=== PATIENT | male | born 1955 | race Caucasian/White ===

== ENCOUNTER 2019-06-08 13:07 | Observation (INO) ==
--- NOTE | 2019-06-08 13:22 | Emergency Department Note ---
Disposition Clinical Impression: Syncope, Leg numbness, Weakness of both lower extremities, Dehydration, Abnormal EKG Disposition: Admitted As Inpatient Referrals: Librado Kaye DO [Primary Care Provider] - Time of Disposition: 16:07 General Adult HPI - General Stated complaint: syncopal episode, BLE numbness Time Seen by Provider: 06/08/19 13:21 - History of Present Illness HPI Narrative: 64-year-old male reports emergency department with concerns for passing out. He states he was at work, he was suspended in a harness over a tank for a significant period of time. He felt dizzy and weak and so they brought him back up and got him out of the harness. The area was being monitored for gases, no toxic gas exposure is reported. He felt the harness was too tight. He states his legs got numb and weak but since then they have normalized. There is no history of slurred speech or unilateral arm or leg weakness or numbness. There is no history of facial drooping. No trauma. He was in his usual state of health prior to the event. The patient got in his truck and reportedly passed out and had loss of urine. He has no history of diabetes mellitus, he has never had a seizure. He then recovered was able to drive. The patient reports emergency department with persistent dizziness, he feels well otherwise. No prior history of CVA. No fall or trauma. The patient denies chest pain or shortness of breath. No abdominal pain. No vomiting or diarrhea. - Related Data Allergies Allergy/AdvReac Type Severity Reaction Status Date / Time No Known Allergies Allergy Verified 06/08/19 14:38 All systems ED: reviewed and negative except as stated. Physical Exam - General Limitations: no limitations General appearance: alert, in no apparent distress - Head Head exam: atraumatic, normocephalic, normal inspection - Eye Eye exam: Present: normal appearance, PERRL, EOMI - ENT ENT exam: normal exam, normal oropharynx, mucous membranes moist, TM's normal bilaterally, normal external ear exam - Neck Neck exam: Present: normal inspection, full ROM, trachea midline - Chest Chest inspection: Present: normal inspection, symmetric chest wall rise. Absent: tenderness - Respiratory Respiratory exam: Present: normal lung sounds bilaterally. Absent: respiratory distress, prolonged expiratory phase - Cardiovascular Cardiovascular exam: Present: regular rate, normal rhythm, normal heart sounds - Abdominal Exam Abdominal exam: Present: soft, Non-Tender, normal bowel sounds. Absent: tenderness, distention, guarding, rebound, rigidity, trauma - Extremities Exam Extremities exam: Present: normal inspection, full ROM, normal capillary refill. Absent: tenderness, pedal edema, joint swelling, calf tenderness - Expanded Lower Extremity Exam Neurovascular/Tendon exam: Present: normal capillary refill. Absent: motor deficit, sensory deficit, tendon deficit, extremity cold to touch, pallor - Back Exam Back exam: Present: normal inspection, full ROM. Absent: tenderness, CVA tenderness (R), CVA tenderness (L), vertebral tenderness - Neurological Exam Neurological exam: Present: alert, oriented X3, CN II-XII intact. Absent: motor sensory deficit - Psychiatric Psychiatric exam: Present: normal affect, normal mood - Skin Skin exam: Present: warm, dry, intact, normal color Course Vital Signs Temperature 97.5 F L 06/08/19 13:19 Pulse Rate 59 06/08/19 13:19 Respiratory Rate 18 06/08/19 13:19 Blood Pressure 127/76 06/08/19 13:19 O2 Sat by Pulse Oximetry 98 06/08/19 13:19 Temperature 97.5 F L 06/08/19 13:19 Pulse Rate 59 06/08/19 13:19 Respiratory Rate 18 06/08/19 13:19 Blood Pressure 120/76 06/08/19 13:41 O2 Sat by Pulse Oximetry 98 06/08/19 13:19 Oxygen Delivery Oxygen Delivery Room Air Medical Decision Making - [facility] Narrative Medical decision making narrative: The patient describes being suspended in a harness for a significant period of time, he developed weakness dizziness as well as leg numbness and had a syncopal event with a loss of urine. In the emergency department, the patient complained of dizziness as most of his other symptoms had resolved. CT head chest x-ray and laboratory studies reviewed. EKG shows a sinus rhythm with an interventricular conduction delay/right bundle branch block and no acute ischemic changes appreciated. No old EKG available for comparison. The patient was given IV fluid and seemed to improve. Based on the patient's age, reported leg numbness, syncope with loss of urine, and abnormal EKG I thought it would be appropriate to observe the patient in the hospital. I suspect the lower extremities became somewhat weak possibly secondary to direct pressure from the harness, he demonstrates no acute neurologic changes suggestive of acute spinal pathology or central source currently however further evaluation could be considered with further radiographic studies. The patient was ambulatory in emergency department. He denied chest pain. Perhaps a series of cardiac enzymes would be appropriate. He is agreeable to hospitalization for observation. I consulted with the hospitalist on-call who has excepted the patient to their care. - Lab Data Lab results reviewed: Yes I reviewed the patient's lab results. Result diagrams: 06/08/19 13:34 06/08/19 13:34 Lab Results 06/08/19 06/08/19 06/08/19 Range/Units 13:34 13:34 13:34 WBC 14.3 H (4.3-11.1) K/mcL RBC 4.85 (4.19-5.50) M/mcL Hgb 15.4 (12.9-16.9) g/dL Hct 44.9 (37.5-50.1) % MCV 92.6 (83.0-100.0) fL MCH 31.8 (28.0-33.3) pg MCHC 34.3 (31.6-35.5) g/dL RDW 14.4 (11.5-14.5) % Plt Count 170 (140-400) K/mcL MPV 10.6 (9.4-12.4) fL Immature Gran % 0.6 (0-4) % Seg Neutrophils % 88.3 % Lymphocytes % 5.8 % Monocytes % 4.7 % Eosinophils % 0.3 % Basophils % 0.3 % Neutrophils # 12.7 H (1.6-8.9) K/mcL Lymphocytes # 0.8 (0.6-4.6) K/mcL Monocytes # 0.7 (0.0-1.3) K/mcL Eosinophils # 0.0 (0.0-0.6) K/mcL Basophils # 0.0 (0.0-0.2) K/mcL PT 11.4 (9.4-12.1) Seconds INR 1.0 APTT 29.2 (26.0-36.0) Seconds Sodium 136 (136-145) mEq/L Potassium 4.1 (3.5-5.1) mEq/L Chloride 106 (98-107) mEq/L Carbon Dioxide 22 L (23-29) mEq/L BUN 24 H (8-23) mg/dL Creatinine 0.93 (0.70-1.30) mg/dL Est GFR ( Amer) > 60 (> 60) Est GFR (Non-Af Amer) > 60 (> 60) BUN/Creatinine Ratio 26 (6-26) Glucose 130 H (70-105) mg/dL Calculated Osmolality 288 (280-300) Lactic Acid (0.5-2.2) mmol/L Calcium 9.3 (8.6-10.3) mg/dL Total Bilirubin 0.5 (0.3-1.0) mg/dL AST 16 (13-39) Units/L ALT 21 (7-52) Units/L Alkaline Phosphatase 75 (34-104) Units/L Creatine Kinase (30-223) Units/L Troponin I < 0.03 (< 0.04) ng/mL C-Reactive Protein (Less than 10) mg/L Serum Total Protein 6.1 L (6.4-8.9) g/dL Albumin 4.2 (3.5-5.7) g/dL Globulin 1.9 L (2.4-3.5) g/dL Albumin/Globulin Ratio 2.2 (1.1-2.2) Urine Color (Yellow) Urine Clarity (Clear) Urine pH (5.0-8.0) pH Units Ur Specific [place] (1.010-1.025) Urine Protein (Neg-Trace) mg/dL Urine Glucose (UA) (Normal) mg/dL Urine Ketones (Negative) mg/dL Urine Blood (Negative) Urine Nitrite (Negative) Urine Bilirubin (Negative) Urine Urobilinogen (Normal) mg/dL Ur Leukocyte Esterase (Negative) 06/08/19 06/08/19 06/08/19 Range/Units 13:34 13:34 13:47 WBC (4.3-11.1) K/mcL RBC (4.19-5.50) M/mcL Hgb (12.9-16.9) g/dL Hct (37.5-50.1) % MCV (83.0-100.0) fL MCH (28.0-33.3) pg MCHC (31.6-35.5) g/dL RDW (11.5-14.5) % Plt Count (140-400) K/mcL MPV (9.4-12.4) fL Immature Gran % (0-4) % Seg Neutrophils % % Lymphocytes % % Monocytes % % Eosinophils % % Basophils % % Neutrophils # (1.6-8.9) K/mcL Lymphocytes # (0.6-4.6) K/mcL Monocytes # (0.0-1.3) K/mcL Eosinophils # (0.0-0.6) K/mcL Basophils # (0.0-0.2) K/mcL PT (9.4-12.1) Seconds INR APTT (26.0-36.0) Seconds Sodium (136-145) mEq/L Potassium (3.5-5.1) mEq/L Chloride (98-107) mEq/L Carbon Dioxide (23-29) mEq/L BUN (8-23) mg/dL Creatinine (0.70-1.30) mg/dL Est GFR ( Amer) (> 60) Est GFR (Non-Af Amer) (> 60) BUN/Creatinine Ratio (6-26) Glucose (70-105) mg/dL Calculated Osmolality (280-300) Lactic Acid 0.9 (0.5-2.2) mmol/L Calcium (8.6-10.3) mg/dL Total Bilirubin (0.3-1.0) mg/dL AST (13-39) Units/L ALT (7-52) Units/L Alkaline Phosphatase (34-104) Units/L Creatine Kinase 81 (30-223) Units/L Troponin I (< 0.04) ng/mL C-Reactive Protein < 5 (Less than 10) mg/L Serum Total Protein (6.4-8.9) g/dL Albumin (3.5-5.7) g/dL Globulin (2.4-3.5) g/dL Albumin/Globulin Ratio (1.1-2.2) Urine Color Yellow (Yellow) Urine Clarity Clear (Clear) Urine pH 5.5 (5.0-8.0) pH Units Ur Specific [place] 1.024 (1.010-1.025) Urine Protein Negative (Neg-Trace) mg/dL Urine Glucose (UA) Normal (Normal) mg/dL Urine Ketones 40 H (Negative) mg/dL Urine Blood Negative (Negative) Urine Nitrite Negative (Negative) Urine Bilirubin Negative (Negative) Urine Urobilinogen Normal (Normal) mg/dL Ur Leukocyte Esterase Negative (Negative) - Radiology Data Radiology results reviewed: Yes I reviewed the patient's radiology results.
[2019-06-08 13:52] LABS: Basophils % 0.3 %; Eosinophils % 0.3 %; Hematocrit 44.9 % (37.5-50.1); Hemoglobin 15.4 g/dL (12.9-16.9); Immature Granulocytes % 0.6 % (0-4); Lymphocytes # 0.8 K/mcL (0.6-4.6); Lymphocytes % 5.8 %; Mean Corpuscular HGB Conc 34.3 g/dL (31.6-35.5); Mean Corpuscular Hemoglobin 31.8 pg (28.0-33.3); Mean Corpuscular Volume 92.6 fL (83.0-100.0); Mean Platelet Volume 10.6 fL (9.4-12.4); Monocytes # 0.7 K/mcL (0.0-1.3); Monocytes % 4.7 %; Neutrophils # 12.7 K/mcL (1.6-8.9); Platelet Count 170 K/mcL (140-400); Red Blood Count 4.85 M/mcL (4.19-5.50); Red Cell Distribution Width 14.4 % (11.5-14.5); Segmented Neutrophils % 88.3 %; White Blood Count 14.3 K/mcL (4.3-11.1)
[2019-06-08 14:09] LABS: Prothrombin Time 11.4 Seconds (9.4-12.1)
[2019-06-08 14:18] LABS: Activated Partial Thrombo Time 29.2 Seconds (26.0-36.0)
[2019-06-08 14:28] LABS: Bilirubin,Urine Negative (Negative); Blood,Urine Negative (Negative); Clarity,Urine Clear (Clear); Color,Urine Yellow (Yellow); Glucose,Urine (UA) Normal (Normal); Ketones,Urine 40 mg/dL (Negative); Leukocyte Esterase,Urine Negative (Negative); Nitrite,Urine Negative (Negative); PH,Urine 5.5 pH Units (5.0-8.0); Protein,Urine Negative (Neg-Trace); Specific Gravity,Urine 1.024 (1.010-1.025); Urobilinogen,Urine Normal (Normal)
[2019-06-08 14:30] LABS: C-Reactive Protein < 5 mg/L (Less than 10); Creatine Kinase 81 Units/L (30-223)
[2019-06-08 14:34] LABS: Alanine Aminotransferase 21 Units/L (7-52); Albumin 4.2 g/dL (3.5-5.7); Albumin/Globulin Ratio 2.2 (1.1-2.2); Alkaline Phosphatase 75 Units/L (34-104); Aspartate Amino Transferase 16 Units/L (13-39); BUN/Creatinine Ratio 26 (6-26); Bilirubin,Total 0.5 mg/dL (0.3-1.0); Blood Urea Nitrogen 24 mg/dL (8-23); Calcium 9.3 mg/dL (8.6-10.3); Carbon Dioxide 22 mEq/L (23-29); Chloride 106 mEq/L (98-107); Globulin 1.9 g/dL (2.4-3.5); Glucose 130 mg/dL (70-105); Osmolality,Calculated 288 (280-300); Potassium 4.1 mEq/L (3.5-5.1); Sodium 136 mEq/L (136-145); Total Protein 6.1 g/dL (6.4-8.9); Troponin I < 0.03 ng/mL (< 0.04); eGFR For African Americans > 60 (> 60); eGFR For Non-African Americans > 60 (> 60)
[2019-06-08] MEDS ORDERED: 0.9 % Sodium Chloride 1,000 ML IVC ONE (15:23)
[2019-06-08] MEDS ORDERED: Ondansetron 4 MG/2 ML VIAL IVP PRN (16:45)
--- NOTE | 2019-06-08 17:04 | Internal Med History&Physical ---
Date of Encounter: 06/08/19 Time of Encounter: 18:00 Internal Medicine - H&P: HPI Chief complaint: Syncope Admitted From: Home History of present illness: Mr. Bull is a 64 year old male with history of hypothyroidism and bariatric surgery who came into the hospital along with his due to syncope. 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 He went to work today and he usually tight himself with a harness over a tank. He usually uses the harness for maximum 3 minutes but today it took him longer time for about 20m. He felt that the harness is too tight on him while he was hanging in the air. He felt weakness in his lower extremities and asked his colleague to lift him up to the ground. Patient sat in his truck after he lost his consciousness and drove home for about 8 minutes. He does not remember exactly the details of himself driving. When he got home, he was so weak and he was not able to leave the car for which he called his . When his arrived to the truck, she found that he has a loss of urine. She drove him to the hospital for almost one hour and he passed out multiple times and was nauseous during this 1 hour. Patient was kind of confused after the incident and he does not remember too many details until he arrived to the ER when he started to remember. His denied any seizure like activity. Patient had no prodromal symptoms before the incident. He had no previous syncope is except when he hit his head one year ago as per the . He denied exertional chest pain or shortness of breath. Patient has long history of smoking one pack per day however he did not have any history of MIs, CVAs or TIAs. He denied any personal or family history of seizure disorder. He has no abdominal pain, vomiting, diarrhea or focal weakness. Upon arrival to the ER, patient was hemodynamically stable. Afebrile. Troponin 1 was negative. EKG was sinus rhythm, RBBB, left posterior fascicular block and frequent PVCs. He had leukocytosis WBC 14.3. He received IV fluids in the ED. Past Med Surg Social Fam HX - Past Medical History Source: patient Medical history: no medical history Additional medical history: Hypothyroidism Psychiatric history: no psych history - Past Surgical History Additional surgical history: Bariatric surgery - Social History Smoking Status: Heavy tobacco smoker Drug use: none - Additional Family History Additional family history: No family history of seizures Internal Medicine - H&P: Meds Aspirin [Lo-Dose Aspirin EC] 81 mg PO DAILY 06/08/19 [History] Vit No.112/Folic Acid [Prenate Chewable Tablet] 1 tab PO DAILY 06/08/19 [History] Synthroid PO DAILY 06/08/19 [History] Allergy/AdvReac Type Severity Reaction Status Date / Time No Known Allergies Allergy Verified 06/08/19 14:38 All Systems PM: A 10-system review of systems was performed and is negative for pertinent findings except as documented above in the HPI. - Constitutional Vitals: Temp Pulse Resp BP Pulse Ox 97.5 F L 59 18 120/76 98 06/08/19 13:19 06/08/19 13:19 06/08/19 13:19 06/08/19 13:41 06/08/19 13:19 Exam: General: Patient is alert, oriented 3. Head: Atraumatic, normal inspection, normocephalic. Eye: EOMI, PERRLA, no scleral icterus noted. ENT: Mucous membranes moist. No odontogenic infection noted. Neck: Normal inspection, no meningismus. Respiratory: No respiratory distress, rhonchi, or wheezes noted. Cardiovascular: Regular rate and regular rhythm, S1 and S2 audible. No murmurs, rubs, or gallops. GI: Soft, nondistended, normal bowel sounds. Extremities:No joint swelling, pedal edema, or tenderness noted. Neurological: Alert, oriented 3, no focal deficits. Psychiatric: normal affect, normal mood. Skin: Dry, intact, warm. Normal color. No rashes. Internal Med - H&P Results - Labs CBC & Chem 7: 06/08/19 13:34 06/08/19 13:34 Labs: Short CBC 06/08/19 Range/Units 13:34 WBC 14.3 H (4.3-11.1) K/mcL Hgb 15.4 (12.9-16.9) g/dL Hct 44.9 (37.5-50.1) % Plt Count 170 (140-400) K/mcL Neutrophils # 12.7 H (1.6-8.9) K/mcL BMP 06/08/19 13:34 Sodium 136 Potassium 4.1 Chloride 106 Carbon Dioxide 22 L BUN 24 H Creatinine 0.93 Glucose 130 H Calcium 9.3 Cardiac Enzymes 06/08/19 Range/Units 13:34 Troponin I < 0.03 (< 0.04) ng/mL Liver Function 06/08/19 Range/Units 13:34 Total Bilirubin 0.5 (0.3-1.0) mg/dL AST 16 (13-39) Units/L ALT 21 (7-52) Units/L Alkaline Phosphatase 75 (34-104) Units/L Albumin 4.2 (3.5-5.7) g/dL Urine 06/08/19 Range/Units 13:47 Urine Color Yellow (Yellow) Urine Clarity Clear (Clear) Urine pH 5.5 (5.0-8.0) pH Units Ur Specific [place] 1.024 (1.010-1.025) Urine Protein Negative (Neg-Trace) mg/dL Urine Glucose (UA) Normal (Normal) mg/dL - EKG Data -: EKG Interpreted by Myself EKG shows normal: sinus rhythm Rate: normal - EKG Data Prior EKG available for review: no - Impressions ITS Impressions Chest X-Ray 06/08/19 13:23 IMPRESSION: No acute cardiopulmonary process. D/ / Atul Ruiz MD / Atul Ruiz MD Interpreting Provider: Atul Ruiz MD Head CT 06/08/19 13:24 IMPRESSION: No acute intracranial abnormality. D/ / Armando Connolly MD / Armando Connolly MD Interpreting Provider: Armando Connolly MD - Diagnostic Studies Chest x-ray Status: image reviewed by me - Assessment and Plan (1) Syncope Current Visit: Yes Status: Acute Qualifiers: Syncope type: heat syncope Encounter type: initial encounter Qualified Code(s): T67.1XXA - Heat syncope, initial encounter (2) Leukocytosis Current Visit: Yes Status: Acute Qualifiers: Qualified Code(s): D72.829 - Elevated white blood cell count, unspecified (3) Bariatric surgery status Current Visit: Yes Status: Chronic (4) Leg numbness Current Visit: Yes Status: Resolved (5) Weakness of both lower extremities Current Visit: Yes Status: Acute - Summary of Assessment and Plan Summary of Assessment and Plan: 64-year-old male with history of hypothyroidism and bariatric surgery, tobacco abuse who came into the hospital with syncope. His symptoms are made as following: Syncope: - Most likely heat exhaustion, less likely seizure or heart related. - EKG with sinus rhythm, frequent PVCs, RBBB and LPFVB. Troponin [address] is negative - We will check another troponin, ordered echo, consult cardiology. - Given his confusion, urinary incontinence. We will consult neurology LE weakness: - Likely from diminished circulation due to tight harness. - Physical exam is normal with no focal deficit. Leukocytosis: - WBC is 14, no previous labs to compare. - likely from smoking. - BCx are pending, UA is negative. patient is afebrile. Hx of bariatric surgery. Hypothyroidism: continue home medications DVT: Heparin SC. - Time Spent With Patient Total time spent is greater than 50% in coordination of care (as documented) at patient's floor/unit and/or counseling patient:
[2019-06-08] MEDS: *HR* Heparin 5,000 UNIT/ML VIAL SQ SCH (20:57)
[2019-06-09] MEDS: *HR* Heparin 5,000 UNIT/ML VIAL SQ SCH (05:26)
[2019-06-09 05:39] LABS: Basophils # 0.1 K/mcL (0.0-0.2); Basophils % 0.4 %; Eosinophils # 0.1 K/mcL (0.0-0.6); Eosinophils % 0.9 %; Hematocrit 44.4 % (37.5-50.1); Hemoglobin 14.9 g/dL (12.9-16.9); Immature Granulocytes % 0.4 % (0-4); Lymphocytes # 1.5 K/mcL (0.6-4.6); Lymphocytes % 10.9 %; Mean Corpuscular HGB Conc 33.6 g/dL (31.6-35.5); Mean Corpuscular Hemoglobin 31.4 pg (28.0-33.3); Mean Corpuscular Volume 93.5 fL (83.0-100.0); Mean Platelet Volume 11.2 fL (9.4-12.4); Monocytes % 7.4 %; Neutrophils # 11.3 K/mcL (1.6-8.9); Platelet Count 178 K/mcL (140-400); Red Blood Count 4.75 M/mcL (4.19-5.50); Red Cell Distribution Width 14.6 % (11.5-14.5); White Blood Count 14.1 K/mcL (4.3-11.1)
[2019-06-09 05:57] LABS: BUN/Creatinine Ratio 20 (6-26); Blood Urea Nitrogen 19 mg/dL (8-23); Calcium 8.9 mg/dL (8.6-10.3); Carbon Dioxide 27 mEq/L (23-29); Chloride 108 mEq/L (98-107); Glucose 103 mg/dL (70-105); Osmolality,Calculated 295 (280-300); Potassium 4.1 mEq/L (3.5-5.1); Sodium 141 mEq/L (136-145); eGFR For African Americans > 60 (> 60); eGFR For Non-African Americans > 60 (> 60)
--- NOTE | 2019-06-09 07:58 | Neurology - Consult Note ---
Date of Encounter: 06/09/19 Time of Encounter: 07:53 Assessment and Plan (1) Syncope Current Visit: Yes Status: Acute I believe at this juncture it seems reasonable to believe that this gentleman experienced an episode of syncope associated with heat exhaustion. He recalls feeling extremely hot prior to losing consciousness, he also felt that his equi pment was feeling too tightly perhaps interfering with appropriate breathing. His neurologic examination is completely normal. He is back to his normal baseline status. He did not have a seizure. CT imaging of the brain was normal. I do not feel that any additional neurologic workup or testing is necessary at this juncture. The elevated WBCs may be a stress-related reaction however I am confident that it is not due to a central nervous system infectious process. Otherwise I will reevaluate him at your request. Qualifiers: Syncope type: heat syncope Encounter type: initial encounter Qualified Code(s): T67.1XXA - Heat syncope, initial encounter History of Present Illness HPI: Mr. Bull is a 64 year old male who is being seen for neurologic consultation secondary to an episode of syncope. Patient was at work yesterday and was straps tightly into a harness where he was lowered into some type of seizure which system. He recalls it was extremely hot, he also recalls that his legs felt numb, perhaps because the harness was fitting too tightly. Apparently he lost consciousness. It seems that he may have been in and out of consciousness prior to arriving to [facility]. He denies any associated chest pain or headache. He states that he felt better after he arrived here. He is now back to his normal baseline status. No seizure activ ity was identified. Laboratory work did reveal elevated white blood cell count at 14.3. I did review the CT scan of the head which was negative. Blood cultures are yet pending. He had an uneventful night. Apparently he did not lose urinary continence however. But he did not bite his tongue. His drove him to the hospital and did not identify any seizure activity. He denies any previous episodes of this nature. Vital signs are stable upon admission. Past Med Surg Social Fam HX - Past Medical History Medical history: no medical history Additional medical history: Hypothyroidism Psychiatric history: no psych history - Past Surgical History Additional surgical history: Bariatric surgery - Social History Smoking Status: Heavy tobacco smoker Drug use: none - Family History Father Hx Family Cardiac Disorders: Yes (heart failure) Hx Family Endocrine Disorder: Yes (dm) Mother Hx Family Cardiac Disorders: Yes (cva) Medications and Allergies Aspirin [Lo-Dose Aspirin EC] 81 mg PO DAILY 06/08/19 [History] Vit No.112/Folic Acid [Prenate Chewable Tablet] 1 tab PO DAILY 06/08/19 [History] Synthroid PO DAILY 06/08/19 [History] Allergy/AdvReac Type Severity Reaction Status Date / Time No Known Allergies Allergy Verified 06/08/19 14:38 All Systems: The remainder of the systems were reviewed and are negative Review of Systems: The balance of the systems review is negative. Physical Examination - Vital Signs Vital Signs: Initial Vital Signs Temp Pulse Resp BP Pulse Ox 97.5 F L 59 18 127/76 98 06/08/19 13:19 06/08/19 13:19 06/08/19 13:19 06/08/19 13:19 06/08/19 13:19 - Exam Exam: General Examination: *CONSTITUTIONAL: normal *GENERAL APPEARANCE OF PATIENT appears healthy and well groomed *EYES: pupils equal, round, reactive to light and accommodation, conjunctiva clear without masses or ulcerations, fundi normal. *CARDIOVASCULAR no peripheral edema, distal temperature normal, dorsalis pedis pulses normal. Refer to vital signs Musculoskeletal: *GAIT AND STATION normal, with normal Romberg testing, no abnormalities such as broad base gait or spasticity *ASSESSMENT OF MUSCLE STRENGTH IN THE UPPER AND LOWER EXTREMITIES deltoid, bicep, tricep, rodeo rider strength, hip flexors ,anterior tibialis, dorsoflexion of the foot normal. *MUSCLE TONE IN THE UPPER AND LOWER EXTREMITIES normal. No abnormal movements, fasciculations or atrophy identified. Neurological: *ORIENTATION to time and place *RECURRENT AND REMOTE MEMORY intact *ATTENTION AND CONCENTRATION are normal *LANGUAGE FUNCTION no significant aphasia or dysarthia was noted. *FUND OF KNOWLEDGE aware of current events, past history, vocabulary *MENTAL attention span and concentration normal. *CN II optic fundi were normal, no papilledema noted. *CN III,IV, PERRLA extraocular eye movements were full, no nystagmus and no ptosis noted. *CN V shows normal sensation and jaw opens symmetrically. *CN VII shows normal facial movement symmetrically, upper and lower bilaterally. *CN VIII shows no significant hearing loss on examination in the office. *CN IX,,X palate elevated symmetrically and normal gag reflex was noted. *CN XI normal strength in the sternocleidomastoid muscles, symmetrical shoulder shrugging. *CN XII tongue protruded in the midline, with normal strength and movement. *SENSORY EXAMINATION pinprick sensation intact, and light touch(vibration sense). *REFLEXES: deep tendon reflexes were normal and symmetrical , grade 2/4 diffusely, no pathological reflexes were noted. *CEREBELLAR TESTING normal finger to nose, heel/knee/lu, and tandem walk. *PAIN LEVEL -0 Results - Laboratory Findings CBC and BMP: 06/09/19 04:35 06/09/19 04:35 Abnormal lab findings: Abnormal lab results WBC 14.1 K/mcL (4.3-11.1) H 06/09/19 04:35 RDW 14.6 % (11.5-14.5) H 06/09/19 04:35 Neutrophils # 11.3 K/mcL (1.6-8.9) H 06/09/19 04:35 Chloride 108 mEq/L (98-107) H 06/09/19 04:35 Carbon Dioxide 22 mEq/L (23-29) L 06/08/19 13:34 BUN 24 mg/dL (8-23) H 06/08/19 13:34 Glucose 130 mg/dL (70-105) H 06/08/19 13:34 Serum Total Protein 6.1 g/dL (6.4-8.9) L 06/08/19 13:34 Globulin 1.9 g/dL (2.4-3.5) L 06/08/19 13:34 Urine Ketones 40 mg/dL (Negative) H 06/08/19 13:47 Consult Discharge Plan - Plan Referrals: Librado Kaye DO [Primary Care Provider] -
--- NOTE | 2019-06-09 08:53 | Cardiology Consult Note ---
Date of Encounter: 06/09/19 Time of Encounter: 08:44 Assessment and Plan (1) Syncope Current Visit: Yes Status: Acute - Patient initially presented after experiencing a syncopal episode while at work - Reports that he was strapped tightly into a harness when this occurred; reported that it was very hot and at the harness was very tight - While being driven to the hospital, he experienced multiple syncopal episodes as well as nausea - CT scan of the head showed no acute abnormalities - EKG showed sinus rhythm with RBBB, left posterior fascicular block, and frequent PVCs - Troponin was negative 2 - No orthostatic vitals were obtained - Per neurology note, patient is neurologically intact and no further neurologic workup is warranted at this time - Patient's condition was likely secondary to heat exhaustion; patient should be sent home with 48 hour Holter monitor to rule out arrhythmia Plan: - Echocardiogram ordered and currently pending - Patient will need 48 hour Holter monitor on discharge - No further intervention is indicated at this time Qualifiers: Syncope type: heat syncope Encounter type: initial encounter Qualified Code(s): T67.1XXA - Heat syncope, initial encounter (2) Abnormal EKG Current Visit: Yes Status: Acute - EKG on arrival demonstrated right bundle branch block with posterior fascicular block and frequent PVCs - No prior EKG was available for comparison - Troponins were negative 2 - Patient denies chest pain, shortness of breath, or diaphoresis (3) Hypothyroidism Current Visit: Yes Status: Acute - Continue home medications Qualifiers: Qualified Code(s): E03.9 - Hypothyroidism, unspecified (4) DVT prophylaxis Current Visit: Yes Status: Acute - SQ Heparin Discussion w patient/family: The assessment and plan as outlined above was discussed with the patient and/or family members who expressed understanding and agreement. All questions were answered. Thank you for involving us in the care of your patient. Please call with any questions. History of Present Illness Consult date: 06/09/19 Chief complaint: syncope History of present illness: Mr. Bull is a 64-year-old male with a PMH of hypothyroidism and bariatric surgery who presented to [facility] ED on 06/08 due to syncopal episode. Patient works as a diesel fleet mechanic for [employer], and reported that while he was at work, he developed a syncopal episode. He reported that he was strapped tightly into a harness which is used to lower him to the sewage system. He reports that it was very hot and that his legs felt numb at the time. Reports that when he drove home, he was very weak and was unable to leave his car. When his arrived, she found that he had a loss of urine. During the drive to the hospital, he experienced multiple syncopal episodes and felt nauseous during this time. He was reportedly confused after the incident and did not remember many details. He reported that he had hit his head approximately one year ago. Vital signs on arrival showed a heart rate of 59 bpm and temperature of 97.5. All other vitals were within normal limits. Labs showed an elevated white count at 14.3 with left shift. Troponin was negative x2. EKG demonstrated sinus rhythm with right bundle branch block, left posterior fascicular block, and frequent PVCs. No acute ischemic changes were observed; no prior EKG was available for comparison. CXR showed no acute cardiopulmonary process. CT of the head showed no acute intracranial abnormality. He was given IV fluids in the emergency department. Echocardiogram was ordered and is currently pending. Neurology was consulted for syncope workup. The cardiology service is consulted for syncope and right bundle branch block found on EKG. During interview today, patient states that he is feeling much better. He denies having any syncopal episodes, dizziness, lightheadedness, or visual disturbances since being admitted to the hospital. He reports that he had seen a security trainer several years ago when he suffered from obesity. After he underwent bariatric surgery, he had not been following with a security trainer. He has no known history of coronary artery disease. He reports a history of CHF in his father. He is a current half pack per day smoker. He denies ever having chest pain, palpitations, diaphoresis, nausea, or vomiting. He has no complaints at this time. Echocardiogram is currently pending. We recommend a 48 hour Holter monitor on discharge. Patient should follow up closely with PCP after discharge. If he develops recurrent syncopal episodes, he should be referred to cardiology in the outpatient setting for further workup. Past Med Surg Social Fam HX - Past Medical History Medical history: no medical history Additional medical history: Hypothyroidism Psychiatric history: no psych history - Past Surgical History Additional surgical history: Bariatric surgery - Social History Smoking Status: Heavy tobacco smoker Drug use: none - Family History Father Hx Family Cardiac Disorders: Yes (heart failure) Hx Family Endocrine Disorder: Yes (dm) Mother Hx Family Cardiac Disorders: Yes (cva) Medications and Allergies Aspirin [Lo-Dose Aspirin EC] 81 mg PO DAILY 06/08/19 [History] Vit No.112/Folic Acid [Prenate Chewable Tablet] 1 tab PO DAILY 06/08/19 [History] Synthroid PO DAILY 06/08/19 [History] Allergy/AdvReac Type Severity Reaction Status Date / Time No Known Allergies Allergy Verified 06/08/19 14:38 All Systems Review: The remainder of the systems were reviewed and are negative Physical Examination Vital Signs, Last 4 Hours Temp Pulse Resp BP Pulse Ox 06/09/19 07:24 98.3 F 64 18 125/72 98 General: Conversant, No Apparent Distress HEENT: Atraumatic, Normocephaly, Mucus Membranes Moist Neck: No JVD, Normal carotid pulses Cardiac: Reg Rate and Rhythm, Normal S1 and S2, No Murmur Lungs: Normal Breath Sounds, No Wheeze, Rales, Rhonchi Neuro: Alert and responsive, No focal deficits noted Abdomen: Soft, Non-Tender Skin: No rashes noted on visualized skin Musculoskeletal: No Chest Wall Tenderness Extremities: No Clubbing, No Cyanosis, No Edema, Normal Pulses Results 06/09/19 04:35 06/09/19 04:35 Lab Results 06/08/19 06/08/19 06/08/19 13:34 13:34 13:34 WBC 14.3 H Hgb 15.4 Hct 44.9 Plt Count 170 INR 1.0 APTT 29.2 Sodium 136 Potassium 4.1 Chloride 106 Carbon Dioxide 22 L BUN 24 H Creatinine 0.93 Glucose 130 H Calcium 9.3 Total Bilirubin 0.5 AST 16 ALT 21 Alkaline Phosphatase 75 Troponin I < 0.03 06/08/19 06/09/19 06/09/19 20:58 04:35 04:35 WBC 14.1 H Hgb 14.9 Hct 44.4 Plt Count 178 INR APTT Sodium 141 Potassium 4.1 Chloride 108 H Carbon Dioxide 27 BUN 19 Creatinine 0.96 Glucose 103 Calcium 8.9 Total Bilirubin AST ALT Alkaline Phosphatase Troponin I < 0.03 Consult Discharge Plan - Plan Referrals: Librado Kaye DO [Primary Care Provider] - 06/15/19 1:30 pm
[2019-06-09] MEDS ORDERED: Aspirin Enteric Coated 81 MG Tablet PO SCH (09:00)
[2019-06-09 11:47] VITALS: BP 119/75
--- NOTE | 2019-06-09 14:09 | Electrocardiograph Report ---
[facility] Test Date: 2019-06-08 Pat Name: Tadeo Bull Department: [id number] Room: 3B54 Gender: M Tube Tester: : [id number] Requested By: Anthony Lorenzo Order Number: [id number] Reading MD: Du Velasquez Measurements Intervals Graham Rate: 64 P: 41 NH: 151 QRS: 107 QRSD: 154 T: 28 QT: 457 QTc: 472 Interpretive Statements Sinus rhythm Ventricular premature complex RBBB and LPFB Electronically Signed On 06-09-2019 14:07:49 EDT by Du Velasquez
--- NOTE | 2019-06-09 14:39 | Discharge Summary ---
- NOTES TO OUTPATIENT PROVIDER Notes to Outpatient Provider: Follow up on CBC and leukocytosis. Orders not resulted at time of discharge: Pending orders 06/08/19 13:38 Culture,Blood [BC] Stat Date of Encounter: 06/09/19 Time of Encounter: 14:00 - Discharge Diagnosis (1) Syncope Priority: Primary Status: Acute Qualifiers: Syncope type: heat syncope Encounter type: initial encounter Qualified Code(s): T67.1XXA - Heat syncope, initial encounter (2) Leukocytosis Priority: Secondary Status: Acute Qualifiers: Qualified Code(s): D72.829 - Elevated white blood cell count, unspecified (3) Bariatric surgery status Priority: Secondary Status: Chronic (4) Leg numbness Priority: Secondary Status: Resolved (5) Weakness of both lower extremities Priority: Secondary Status: Acute Hospital course: Mr. Bull is a 64 year old male with history of hypothyroidism and bariatric Surgery who came into the hospital due to syncope. History was negative twice. EKG revealed sinus rhythm with frequent PVCs, right bundle branch block and left posterior fascicular block. Crit is service was consulted, echo did not reveal any abnormality. Patient was recommended to get Holter monitor before discharge however he declined. Neurology service also was consulted and his symptoms were related to heat exhaustion. Today, patient is hemodynamically stable. Asymptomatic. He will be discharged home in stable condition Discharge discussed with: patient - Time Spent with Patient Total time spent providing and/or coordinating discharge services: 45 minutes - Discharge Medications Prescriptions: Continued Vit No.112/Folic Acid [Prenate Chewable Tablet] 1 tab PO DAILY Aspirin [Lo-Dose Aspirin EC] 81 mg PO DAILY Synthroid PO DAILY Home Medications: Aspirin [Lo-Dose Aspirin EC] 81 mg PO DAILY 06/08/19 [History] Vit No.112/Folic Acid [Prenate Chewable Tablet] 1 tab PO DAILY 06/08/19 [History] Synthroid PO DAILY 06/08/19 [History] Allergies/Adverse Reactions: Allergy/AdvReac Type Severity Reaction Status Date / Time No Known Allergies Allergy Verified 06/08/19 14:38 Date of admission: 06/08/19 18:36 Primary care physician: Librado Kaye DO Consults: 06/08/19 16:48 Consult to Cardiology [CONS] Routine Comment: Consulting Provider: Cardiology [facility] Reason for Consult: syncope, RBBB on EKG. Call Completed: No 06/08/19 17:08 Consult to Neurology [CONS] Routine Consulting Provider: Neurology [facility] Reason for Consult: syncope, urinary incontinence, confusion. Call Completed: No - Constitutional Vitals: Temp Pulse Resp BP Pulse Ox 98.3 F 60 18 119/75 97 06/09/19 11:46 06/09/19 11:46 06/09/19 11:46 06/09/19 11:46 06/09/19 11:46 Exam: General: Patient is alert, oriented 3. Head: Atraumatic, normal inspection, normocephalic. Eye: EOMI, PERRLA, no scleral icterus noted. ENT: Mucous membranes moist. No odontogenic infection noted. Neck: Normal inspection, no meningismus. Respiratory: No respiratory distress, rhonchi, or wheezes noted. Cardiovascular: Regular rate and regular rhythm, S1 and S2 audible. No murmurs, rubs, or gallops. GI: Soft, nondistended, normal bowel sounds. Extremities:No joint swelling, pedal edema, or tenderness noted. Neurological: Alert, oriented 3, no focal deficits. Psychiatric: normal affect, normal mood. Skin: Dry, intact, warm. Normal color. No rashes. - Patient Status Disposition: Home, Self-Care Condition: Good Functional capacity at discharge: independent ambulation Overall status at discharge: patient is back to baseline - Discharge Instructions Follow Up With: Librado Kaye DO [Primary Care Provider] - 06/15/19 1:30 pm Forms: ED Satisfaction Letter - Diet and Activity Activity: resume usual activities as tolerated Diet: low salt diet
== END 2019-06-09 14:58 | disposition home or self-care (01) ==
LOC: SUATTDRO → EMEROOARM 13:07 → 3BNU 13:07 → SUATTDRO 18:36 → 3BNU 20:17
PROVIDERS: ADMIT Student in an Organized Health Care Education/Training Program; ATTEND Internal Medicine

== ENCOUNTER 2021-12-10 20:06 | Inpatient (IN) ==
[2021-12-10] MEDS ORDERED: diazePAM 10 MG/2 ML SYRINGE IM STA (20:12)
[2021-12-10] MEDS ORDERED: 0.9 % Sodium Chloride 1,000 ML IVC ONE (20:12)
[2021-12-10] MEDS ORDERED: Morphine Sulfate 2 MG/ML SYRINGE IVP ONE (20:12)
[2021-12-10] MEDS ORDERED: diazePAM 10 MG/2 ML SYRINGE IVP ONE (20:13)
[2021-12-10 20:32] LABS: Basophils # 0.1 K/mcL (0.0-0.2); Basophils % 0.4 %; Eosinophils # 0.1 K/mcL (0.0-0.6); Eosinophils % 0.4 %; Hematocrit 46.5 % (37.5-50.1); Hemoglobin 15.7 g/dL (12.9-16.9); Immature Granulocytes % 0.9 % (0-4); Lymphocytes # 1.1 K/mcL (0.6-4.6); Lymphocytes % 4.7 %; Mean Corpuscular HGB Conc 33.8 g/dL (31.6-35.5); Mean Corpuscular Hemoglobin 31.7 pg (28.0-33.3); Mean Corpuscular Volume 93.9 fL (83.0-100.0); Mean Platelet Volume 10.3 fL (9.4-12.4); Monocytes % 4.3 %; Neutrophils # 20.2 K/mcL (1.6-8.9); Platelet Count 233 K/mcL (140-400); Red Blood Count 4.95 M/mcL (4.19-5.50); Segmented Neutrophils % 89.3 %; White Blood Count 22.7 K/mcL (4.3-11.1)
[2021-12-10 20:40] LABS: Prothrombin Time 10.9 Seconds (9.4-12.1)
[2021-12-10 20:43] LABS: Activated Partial Thrombo Time 29.7 Seconds (26.0-36.0)
[2021-12-10 20:55] LABS: Alanine Aminotransferase 18 Units/L (7-52); Albumin/Globulin Ratio 1.9 (1.1-2.2); Alkaline Phosphatase 72 Units/L (34-104); Aspartate Amino Transferase 16 Units/L (13-39); BUN/Creatinine Ratio 24 (6-26); Bilirubin,Total 0.4 mg/dL (0.3-1.0); Blood Urea Nitrogen 22 mg/dL (8-23); Calcium 8.9 mg/dL (8.6-10.3); Carbon Dioxide 25 mEq/L (23-29); Chloride 102 mEq/L (98-107); Globulin 2.1 g/dL (2.4-3.5); Glucose 156 mg/dL (70-105); Osmolality,Calculated 289 (280-300); Potassium 3.7 mEq/L (3.5-5.1); Sodium 136 mEq/L (136-145); Total Protein 6.1 g/dL (6.4-8.9); eGFR For African Americans > 60 (> 60); eGFR For Non-African Americans > 60 (> 60)
[2021-12-10] MEDS ORDERED: *HR* HYDROmorphone (PF) 1 MG/ML SYRINGE IVP ONE (21:07)
[2021-12-10] MEDS ORDERED: 0.9 % Sodium Chloride 1,000 ML IVC SCH ×2 (21:15→22:06)
[2021-12-10] MEDS ORDERED: Naloxone 0.4 MG/ML INJ IVP PRN (22:00)
[2021-12-10] MEDS ORDERED: Ondansetron ODT 4 MG TAB.RAPDIS SL PRN (22:00)
[2021-12-10] MEDS ORDERED: traZODone 50 MG TABLET PO PRN (22:06)
[2021-12-10 22:30] LABS: Basophils # 0.1 K/mcL (0.0-0.2); Basophils % 0.3 %; Hematocrit 43.2 % (37.5-50.1); Hemoglobin 14.9 g/dL (12.9-16.9); Immature Granulocytes % 0.6 % (0-4); Lymphocytes # 1.1 K/mcL (0.6-4.6); Mean Corpuscular HGB Conc 34.5 g/dL (31.6-35.5); Mean Corpuscular Volume 92.7 fL (83.0-100.0); Mean Platelet Volume 9.9 fL (9.4-12.4); Monocytes # 0.8 K/mcL (0.0-1.3); Monocytes % 3.8 %; Platelet Count 222 K/mcL (140-400); Red Blood Count 4.66 M/mcL (4.19-5.50); Red Cell Distribution Width 13.9 % (11.5-14.5); Segmented Neutrophils % 90.3 %; White Blood Count 21.1 K/mcL (4.3-11.1)
[2021-12-10 22:40] LABS: Activated Partial Thrombo Time 30.4 Seconds (26.0-36.0)
[2021-12-10 22:52] LABS: Magnesium 1.7 mg/dL (1.6-2.6); Phosphorous 2.7 mg/dL (2.7-4.5)
[2021-12-11] MEDS ORDERED: Morphine Sulfate 2 MG/ML SYRINGE IVP ONE ×2 (00:09→06:11)
[2021-12-11] MEDS: Nicotine 21 MG PATCH.TD24 TD SCH ×2 (00:20→21:48)
[2021-12-11 02:37] LABS: BUN/Creatinine Ratio 22 (6-26); Blood Urea Nitrogen 18 mg/dL (8-23); Calcium 8.2 mg/dL (8.6-10.3); Carbon Dioxide 23 mEq/L (23-29); Chloride 108 mEq/L (98-107); Glucose 179 mg/dL (70-105); Osmolality,Calculated 290 (280-300); Sodium 137 mEq/L (136-145); eGFR For African Americans > 60 (> 60); eGFR For Non-African Americans > 60 (> 60)
[2021-12-11] MEDS ORDERED: Lidocaine HCL 4 ML Topical Solution (Laryng-O-Jet Kit Sterile Pak) TP ONE (12:15)
[2021-12-11] MEDS ORDERED: *HR* Propofol 200 MG/20 ML VIAL IVP ONE (12:19)
[2021-12-11] MEDS ORDERED: Ondansetron 4 MG/2 ML VIAL ONE (12:21)
[2021-12-11] MEDS ORDERED: *HR* Succinylcholine 200 MG/10 ML VIAL IVP ONE (12:21)
[2021-12-11] MEDS ORDERED: Lidocaine -MPF 2% 5 ML VIAL ONE (12:21)
[2021-12-11] MEDS ORDERED: *HR* Rocuronium Bromide 50 MG/5 ML VIAL ONE ×2 (12:21→13:42)
[2021-12-11] MEDS ORDERED: *HR* OxyCODONE Immed Rel 5 MG TABLET PO PRN (12:59)
[2021-12-11] MEDS ORDERED: *HR* Labetalol 20 MG/4 ML SYRINGE IVP PRN (12:59)
[2021-12-11] MEDS ORDERED: Ondansetron 4 MG/2 ML VIAL IVP PRN (12:59)
[2021-12-11] MEDS ORDERED: *HR* HYDROmorphone PF 0.5 MG/0.5 ML SYRINGE IVP PRN (12:59)
[2021-12-11] MEDS ORDERED: CeFAZolin Syr 2,000MG/20 ML 2,000 MG/20 ML SYRINGE IVPB ONE ×2 (13:02→13:15)
[2021-12-11] MEDS ORDERED: Vancomycin 1,000 MG VIAL ONE (13:06)
[2021-12-11] MEDS ORDERED: *HR* FentaNYL (PF) 100 MCG/2 ML VIAL ONE (13:08)
[2021-12-11] MEDS ORDERED: Ketamine HCL *QUVA* 50mg (1mL) SYRINGE ONE (13:09)
[2021-12-11] MEDS ORDERED: Ringers Solution, Lactated 1,000 ML IVC SCH (13:15)
[2021-12-11] MEDS ORDERED: *HR* HYDROMORPHONE 2 MG/ML VIAL ONE (13:57)
[2021-12-11] MEDS: CeFAZolin 2 GM/120 ML BAG IVPB SCH (23:50)
[2021-12-12 05:18] LABS: Hematocrit 35.4 % (37.5-50.1)
[2021-12-12 05:24] LABS: Hemoglobin 11.9 g/dL (12.9-16.9)
[2021-12-12] MEDS: CeFAZolin 2 GM/120 ML BAG IVPB SCH (08:41)
[2021-12-12] MEDS: Morphine Sulfate 2 MG/ML SYRINGE IVP PRN ×2 (14:36→21:34)
[2021-12-12] MEDS: Nicotine 21 MG PATCH.TD24 TD SCH (20:34)
[2021-12-12 20:52] LABS: Basophils % 0.2 %; Eosinophils % 0.2 %; Hematocrit 31.8 % (37.5-50.1); Hemoglobin 10.7 g/dL (12.9-16.9); Immature Granulocytes % 0.5 % (0-4); Lymphocytes # 1.8 K/mcL (0.6-4.6); Lymphocytes % 15.4 %; Mean Corpuscular HGB Conc 33.6 g/dL (31.6-35.5); Mean Corpuscular Hemoglobin 31.6 pg (28.0-33.3); Mean Corpuscular Volume 93.8 fL (83.0-100.0); Mean Platelet Volume 10.6 fL (9.4-12.4); Monocytes # 1.1 K/mcL (0.0-1.3); Platelet Count 152 K/mcL (140-400); Red Blood Count 3.39 M/mcL (4.19-5.50); Red Cell Distribution Width 13.8 % (11.5-14.5); Segmented Neutrophils % 74.7 %
[2021-12-12 21:11] LABS: BUN/Creatinine Ratio 20 (6-26); Blood Urea Nitrogen 17 mg/dL (8-23); Calcium 8.2 mg/dL (8.6-10.3); Carbon Dioxide 24 mEq/L (23-29); Chloride 104 mEq/L (98-107); Glucose 165 mg/dL (70-105); Osmolality,Calculated 285 (280-300); Sodium 135 mEq/L (136-145); eGFR For African Americans > 60 (> 60); eGFR For Non-African Americans > 60 (> 60)
[2021-12-13] MEDS: Morphine Sulfate 2 MG/ML SYRINGE IVP PRN ×2 (02:21→07:39)
[2021-12-13] MEDS ORDERED: *HR* Enoxaparin 40 MG/0.4 ML SYRINGE SQ SCH (06:00)
[2021-12-13 10:23] LABS: Basophils % 0.3 %; Eosinophils # 0.1 K/mcL (0.0-0.6); Eosinophils % 0.6 %; Hematocrit 30.3 % (37.5-50.1); Hemoglobin 10.3 g/dL (12.9-16.9); Immature Granulocytes % 0.6 % (0-4); Lymphocytes # 1.3 K/mcL (0.6-4.6); Lymphocytes % 12.3 %; Mean Corpuscular Hemoglobin 32.1 pg (28.0-33.3); Mean Corpuscular Volume 94.4 fL (83.0-100.0); Mean Platelet Volume 10.3 fL (9.4-12.4); Monocytes # 0.9 K/mcL (0.0-1.3); Monocytes % 8.7 %; Neutrophils # 8.4 K/mcL (1.6-8.9); Platelet Count 144 K/mcL (140-400); Red Blood Count 3.21 M/mcL (4.19-5.50); Red Cell Distribution Width 13.8 % (11.5-14.5); Segmented Neutrophils % 77.5 %; White Blood Count 10.8 K/mcL (4.3-11.1)
[2021-12-13 10:41] LABS: BUN/Creatinine Ratio 18 (6-26); Blood Urea Nitrogen 15 mg/dL (8-23); Calcium 7.9 mg/dL (8.6-10.3); Carbon Dioxide 25 mEq/L (23-29); Chloride 102 mEq/L (98-107); Glucose 182 mg/dL (70-105); Osmolality,Calculated 279 (280-300); Potassium 4.1 mEq/L (3.5-5.1); Sodium 132 mEq/L (136-145); eGFR For African Americans > 60 (> 60); eGFR For Non-African Americans > 60 (> 60)
[2021-12-13] MEDS ORDERED: *HR* HYDROcodone/Acet 5/325 mg TABLET PO PRN ×2 (13:49→13:50)
[2021-12-13 15:31] VITALS: BP 114/64; PULSE 71; TEMP 97.8; O2SAT 93
[2021-12-13 17:07] LABS: Influenza A PCR Negative (Negative); Influenza B PCR Negative (Negative); Resp. Syncytial Virus PCR Negative (Negative)
[2021-12-13 17:08] LABS: SARS-CoV-2 by PCR (In House) Negative (Negative)
[2021-12-13] MEDS: Nicotine 21 MG PATCH.TD24 TD SCH (19:33)
== END 2021-12-13 19:48 | DRG 481 ==
LOC: EMEROOARM 20:06 → 4WAOSI 20:06 → SUATTDRO 22:00 → 4WAOSI 22:06
PROVIDERS: ADMIT Family Medicine; ATTEND Internal Medicine